=== PATIENT | female | born 2005 | race Caucasian/White ===

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

== ENCOUNTER 2025-01-09 09:16 | Outpatient (OUT) | payer OTHER, SELFPAY ==
[2025-01-09 09:44] LABS: Hematocrit 39.8 % (36.0-48.0); Hemoglobin 13.7 g/dL (12.0-16.0); Immature Granulocytes Abs Auto 0.01 10^3/uL (0.00-0.03); Immature Granulocytes Pct Auto 0.2 % (0.0-0.5); Lymphocytes Absolute Auto 1.6 10^3/uL (1.2-3.8); Mean Corpuscular HGB Conc 34.4 g/dL (29.9-35.2); Mean Corpuscular Hemoglobin 31.1 pg (26.7-34.0); Mean Corpuscular Volume 90.5 fL (81.0-99.0); Platelet Count 239 10^3/uL (150-450); Red Blood Count 4.40 10^6/uL (4.20-5.40); White Blood Count 5.8 10^3/uL (4.0-11.0)
[2025-01-09 10:29] LABS: Anion Gap 13.2; Blood Urea Nitrogen 8.0 mg/dL (6.4-19.3); Calcium 9.2 mg/dL (8.5-10.1); Carbon Dioxide 26.7 mmol/L (21.0-32.0); Chloride 104 mmol/L (98-107); Estimated GFR (African America >60 (>=60 mL/min/1.73m^2); Estimated GFR (Non-African Ame >60 (>=60 mL/min/1.73m^2); Glucose 86 mg/dL (74-106); Potassium 3.9 mmol/L (3.5-5.1); Sodium 140 mmol/L (136-145); Thyroid Stimulating Hormone 1.391 uIU/mL (0.516-4.130)
== END 2025-01-09 09:17 | disposition home or self-care (01) ==
PROVIDERS: PCP Family Medicine; Visit Provider Family Medicine
DX: R63.1 Polydipsia (principal); L65.9 Nonscarring hair loss, unspecified; R53.83 Other fatigue
CPT/HCPCS: 36415; 80048; 82728; 83036; 84439; 84443; 84480; 85025; 86376; 86800

== ENCOUNTER 2025-01-17 09:51 | Emergency (ER) | payer OTHER, SELFPAY ==
--- OUTSIDE RECORDS SUMMARY | 2025-01-09 05:04 | XMS_ITS | Continuity of Care Document ---
Author Organization [facility] Address [address] [place] [address] Phone Care Team Providers Care Administrative Program Specialist Name Role Phone Aylin Shin MD Primary Care Provider Aylin Shin MD Attending Provider Care Teams Patient Care Team Team Status: Active Member Role Status Dates Aylin Shin MD Primary Care Provider Active Visit Care Team Team Status: Inactive Member Role Status Dates Aylin Shin MD Primary Care Provider Active Start: November 03, 2024 End: November 03, 2024 Aylin Shin MD Attending Provider Active St art: November 03, 2024 End: November 03, 2024 Patient Care Team Team Status: Inactive Member Role Status Dates Aylin Shin MD Primary Care Provider Active Start: January 09, 2025 End: January 09, 2025 Aylin Shin MD Attending Provider Active St art: January 09, 2025 End: January 09, 2025 Chief Complaint and Reason for Visit Chief Complaint Admit Date Cough x1 week November 03, 2024 11:00 am Thyroid BW/Possible Diabetes/Support Ani mal January 09, 2025 8:25am Reason for Visit Admit Date Sinusitis, acute maxillary November 03 11:00am Fatigue January 09, 2025 8:25 am Hair loss January 09, 2025 8:25 am Polydipsia January 09, 2025 8:25 am Allergies, Adverse Reactions, Alerts Allergen Type Severity Reaction Last Updated Verified Status No Known Allergies Allergy Unknown January 09, 2025 8:31a m Yes Active Social History Smoking Status Status Start Date End Date Date of Observa tion Never smoked tobacco (finding) August 18, 2024 3:43pm Observation Status Observation Response Date of Response Legal Sex Female (finding) Sex Assigned At Female July 222005 Problems Active Problems Medical Problem Onset Date Status RLQ abdominal pain Unknown Active LLQ abdominal pain Unknown Active Sinusitis, acute maxillary Unknown Activ e Physically able to work Unknown Active Fatigue Unknown Active Polydipsia Unknown Active Vision problems Unknown Active Depression Unknown Active Diarrhea Unknown Active Migraine Unknown Active Hyperthyroidism Unknown Active Headache disorder Unknown Active Nausea and vomiting Unknown Active Abdominal pain Unknown Active Hair loss Unknown Active Medications Medication Status Dose Units Route Directions Qty Days St art Date Stop Date End Date Instructions Adherence Levonorgest rel-Ethinyl Estrad (Teddyo (28)) 0.15-0.03 mg tablet Discont inued 0 .ROUTE .COMPLEX 84 2023 11:01a m 2024 4:42p m TAKE 1 TABLET DAILY Rimegepant (Nurtec Odt) 75 mg tablet,disi ntegrating Discont inued 75 MG PO Every 48 hours as needed for migraine headache September 15, 2024 12:00a m November 03, 2024 11:14 am Benzonatate 200 mg capsule Discont inued 200 MG PO 2-3 TIMES PER DAY as needed for cough November 03, 2024 12:00a m January 09, 2025 8:31a m Amoxicillin -Pot Clavulanate 875-125 mg tablet Discont inued 1 TAB PO Twice daily November 03, 2024 12:00a m January 09, 2025 8:31a m Desogestrel -Ethinyl Estradiol (Rickyer) 0.15-0.03 mg tablet Active 1 TAB PO Daily January 09, 2025 12:00a m Complies with drug therapy Rizatriptan 10 mg tablet Active 10 MG PO EVERY 2-4 HOURS as needed January 09, 2025 12:00a m do not exceed 3 doses per 24 hrs Complies with drug therapy Levonorgest rel-Ethinyl Estrad (Teddyo (28)) 0.15-0.03 mg tablet Discont inued 1 TAB PO Daily 2023 1:00am 2023 11:01 am Duloxetine (Cymbalta) 20 mg capsule,del ayed release(DR/ EC) Discont inued 1 TAB PO Daily [facility] er 2023 1:00am [facility] 2023 10:53 am FreeTextSi tablet once a day; Note: Source Status: Taking; Provider: Aleida Viera ( ) Escitalopra m Oxalate 20 mg tablet Active 20 MG PO Daily [facility] 2023 1:00am FreeTextSi tablet Orally Once a day; Note: Source Status: Taking; Provider: Aleida Viera ( ) Complies with drug therapy Cetirizine (Zyrtec) 10 mg tablet Active 10 MG PO Daily as needed [facility] 2023 1:00am Complies with drug therapy Metformin 500 mg tablet Discont inued 500 MG PO Daily [facility] 2023 1:00am November 03, 2024 11:14 am Methimazole 5 mg tablet Active 5 MG PO Daily [facility] 2023 1:00am Complies with drug therapy Buspirone 10 mg tablet Discont inued 10 MG PO Twice daily [facility] 2023 1:00am November 03, 2024 11:15 am Buspirone 10 mg tablet Discont inued 15 MG PO Twice daily November 03, 2024 11:12a m January 09, 2025 8:33a m Buspirone 10 mg tablet Active 20 MG PO Twice daily January 09, 2025 8:31am Complies with drug therapy Sumatriptan Succinate 50 mg tablet Discont inued 50 MG PO EVERY 2-4 HOURS as needed for migraine headache [facility]24 [facility]03 pm do not exceed 4 doses per 24 hrs Levonorgest rel-Ethinyl Estrad (Lisa (28)) 0.15-0.03 mg tablet Discont inued 1 TAB PO Daily ry 2024 4:42pm November 03, 2024 11:12 am Vital Signs Vital Reading Result Reference Range Collection Date/Time Height 66 [in_i] November 03, 2024 11:08am Weight 104.32 kg November 03, 2024 11:08am Body Temperature 97.8 [degF] 97.6-99.0 November 03, 11:08am Heart Rate 120 /min 60-100 November 03, 2024 11:08am BP Systolic 122 mm[Hg] 100-140 November 03, 2024 11:08am BP Diastolic 84 mm[Hg] 60-100 November 03, 2024 11:08am BMI (Body Mass Index) 37.1 kg/m2 November 032024 11:08am Body mass index (BMI) [Percentile] Per age and sex 98.0 % Obesity; 95th percentile and above November 03, 2024 11:08am Height 66 [in_i] January 09, 2025 8:28am Weight 103.47 kg January 09, 2025 8:28am Heart Rate 92 /min 60-100 January 09, 2025 8:28am BP Systolic 106 mm[Hg] 100-140 January 09, 2025 8:28am BP Diastolic 75 mm[Hg] 60-100 January 09, 2025 8:28am BMI (Body Mass Index) 36.8 kg/m2 December 202024 8:28am Body mass index (BMI) [Percentile] Per age and sex 97.8 % Obesity; 95th percentile and above January 09, 2025 8:28am Advance Directives Advance Directive Response Recorded Date/ Time Advance Directives No July 3:41pm Insurance Providers Guarantor Marta Bustamante Address [address] [place] [id number] Contact Info. Home Phone: [phone] Payer Policy Id Subscriber's Name Subscriber Id Effectiv e Date Expiration Date [employer] [id number] Agus Bustamante Jr [id number] Encounters Encounter Location(s) Arrival/Admit Date Discharge/Depart Date Provider(s) Departed Physician/Prov ider Office Visit -[facility] November 03, 2024 11:00am November 03, 2024 11:34am Aylin Shin MD Departed Physician/Prov ider Office Visit -[facility] January 09, 2025 8:25am January 09, 2025 9:03am Aylin Shin MD Recent Diagnosis Onset Date Admit Date Sinusitis, acute maxillary Unknown October 192024 11:00am Fatigue Unknown January 09, 2025 8:25am Hair loss Unknown January 09, 2025 8:25am Polydipsia Unknown January 09, 2025 8:25am Assessments Diagnosis Onset Date Resolution Status Admit Date Sinusitis, acute maxillary acute November 03, 2024 11:00am Fatigue acute January 09 8:25am Hair loss acute January 09 8:25am Polydipsia acute January 09 8:25am Plan of Treatment Author Aylin Shin [facility] Authored November 07, 2024 12:57 pm Discussed diagnosis with charli frank. Instructed to take ATB as directed and complete entire course even if asymptomatic. OTC Tylenol or ibuprofen for discomfort. Saline nasal spray prn congestion. Flonase nasal spray prn congestion. OTC cough medication prn cough. Push fluids and rest. Cool mist humidifier. Immediate evaluation if worsening symptoms. Patient to notify office should symptoms persist or not improve. Pt verbalizes understanding and agrees with tx plan. Future Tests Future scheduled test information is unavailable Pending Tests Pending diagnostic test information is unavailable Future Visits Future appointment information is unavailable Referrals to Other Providers Referral information is unavailable Future Procedures Procedure Name Ordered Date Scheduled Date A1C with Estimated Average Glu January 09, 2025 8 :56am Basic Metabolic Panel January 09, 2025 8:59am Complete Blood Count Auto Diff January 09, 2025 8 :56am Ferritin January 09, 2025 8:56am Triiodothyronine (T3) Total January 09, 2025 8:56 am Free T4 (Free Thyroxine) January 09, 2025 8:56am Thyroid Antibodies TPO+Tg Ab January 09, 2025 8:5 7am Thyroid Stim Hormone w/Rflx January 09, 2025 8:56 am Future Medications Future medication information is unavailable Patient Instructions Patient instructions are unavailable
[2025-01-17 10:02] VITALS: BP 125/94; PULSE 97; TEMP 36.9; O2SAT 98; BMI 36.3
--- OUTSIDE RECORDS SUMMARY | 2025-01-17 10:36 | XMS_ITS | Clinical Summary ---
Author Organization [facility] Address [address] [place] [address] Care Team Providers Care Blanchard Grinder Operator Name Role Phone Aylin Shin Primary Care Provider [phone] Social History Tobacco Use Types Packs/Day Years Used Date Smoking Tobacco: Never Assessed Comments Unknown Sex and Gender Information Value Date Recorded Sex Assigned at Not on file Legal Sex Female 11:49 AM EDT Gender Identity Not on file Sexual Orientation Not on file Last Filed Vital Signs Vital Sign Reading Time Taken Comments Blood Pressure - - Pulse - - Temperature - - Respiratory Rate - - Oxygen Saturation - - Inhaled Oxygen Concentration - - Weight 84.4 kg (186 lb) 03/16/2023 9:26 AM EDT P CP Height 174 cm (5' 8.5 ) 03/16/2023 9:26 AM EDT P CP Body Mass Index 27.87 03/16/2023 9:26 AM EDT Body Mass Index Percentile 91.86% 03/16/2023 9:2 6 AM EDT Growth Chart: CDC (Girls, 2- 20 Years) Plan of Treatment Health Maintenance Due Date Last Done Comments MMR Vaccine (1 of 1 - Standa rd series) 2006 DTaP/Tdap/Td Vaccine (1 - Tdap) 2012 Varicella Vaccine (1 of 2 - 13+ 2-dose series) 2018 HPV Vaccine (1 - 3-dose series) 2020 Meningococcal B Vaccine (1 o f 2 - Standard) 2021 COVID-19 Vaccine (1 - 2023-2 5 season) 2024 Hepatitis B Vaccine (1 of 3 - 19+ 3-dose series) 2024 Influenza Vaccine (#1) 2025 HIB Vaccine Aged Out No longer eligi ble based on patient's age to complete this topic Hepatitis A Vaccine Aged Out No longe r eligible based on patient's age to complete this topic IPV Vaccine Aged Out No longer eligi ble based on patient's age to complete this topic Meningococcal ACWY Vaccine Aged Out N o longer eligible based on patient's age to complete this topic Pneumococcal Vaccine Aged Out No long er eligible based on patient's age to complete this topic RSV, Nirsevimab Immunization Aged Out No longer eligible based on patient's age to complete this topic Rotavirus Vaccine Aged Out No longer eligible based on patient's age to complete this topic Insurance [employer] Care Teams Blanchard Grinder Operator Relationship Specialty Start Date End Date Aylin Shin [address] [place] [address] PCP - General Family Medicine 03/03/23
--- OUTSIDE RECORDS SUMMARY | 2025-01-17 10:37 | XMS_ITS | Patient Health Record ---
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
--- OUTSIDE RECORDS SUMMARY | 2025-01-17 10:37 | XMS_ITS | Clinical Summary ---
Author Organization [facility] Address [address], [address] [place] [address] Care Team Providers Care Rn Stars Name Role Phone Aylin Shin MD Primary Care Provider [phone] Allergies No known active allergies Medications busPIRone (BUSPAR) 10 MG tablet Take 1 tablet by mouth 2 times daily 4 Active methIMAzole (TAPAZOLE) 5 MG tablet Take 1 tablet by mouth at bedtime 4 Active metFORMIN (GLUCOPHAGE-XR) 500 MG extended release tablet Take 1 tablet by mouth Daily with supper 4 Active desogestrel-eth inyl estradiol (JULEBER) 0.15-30 MG-MCG per tablet Take 1 tablet by mouth Daily with supper Active ferrous sulfate (IRON 325) 325 (65 Fe) MG tablet Take 1 tablet by mouth daily (with breakfast) Active escitalopram (LEXAPRO) 20 MG tablet Take 1 tablet by mouth Daily with supper 3 Active cetirizine (ZYRTEC) 10 MG tablet Take 1 tablet by mouth as needed for Allergies Active Active Problems Problem Noted Date Diagnosed Date Traction retinal detachment sparing macula, righ t 03/30/2024 Family History Medical History Relation Name Comments No Known Problems Father High Blood Pressure Mother Relation Name Status Comments Father Alive Mother Alive Social History Tobacco Use Types Packs/Day Years Used Date Smoking Tobacco: Never Smokeless Tobacco: Never Tobacco Cessation:Counseling Given: Not Answered Alcohol Use Standard Drinks/Week Comments Never 0 (1 standard drink = 0.6 oz pur e alcohol) Interpersonal Safety Domain Source: IP Abuse Scr eening Answer Date Recorded Physical abuse Denies 03/28/2024 Verbal abuse Denies 03/28/2024 Emotional abuse Denies 03/28/2024 Financial abuse Denies 03/28/2024 Sexual abuse Denies 03/28/2024 Comments No Sex and Gender Information Value Date Recorded Sex Assigned at Not on file Legal Sex Female 8:55 AM EDT Gender Identity Not on file Sexual Orientation Not on file Last Filed Vital Signs Vital Sign Reading Time Taken Comments Blood Pressure 128/78 03/30/2024 5:30 PM EDT Pulse 93 03/30/2024 5:30 PM EDT Temperature 36.2 C (97.2 F) 03/30/2024 5:30 PM EDT Respiratory Rate 24 03/30/2024 5:30 PM EDT Oxygen Saturation 97% 03/30/2024 5:30 PM EDT Inhaled Oxygen Concentration - - Weight 99.8 kg (220 lb) 03/30/2024 10:54 AM EDT Height 167.6 cm (5' 6 ) 03/30/2024 10:54 AM EDT Body Mass Index 35.51 03/30/2024 10:54 AM EDT Body Mass Index Percentile 97.40% 03/30/2024 10: 54 AM EDT Growth Chart: CDC (Girls, 2- 20 Years) Plan of Treatment Health Maintenance Due Date Last Done Comments COVID-19 Vaccine (1 - 2023-2 5 season) 2024 DTaP/Tdap/Td vaccine (1 - Tdap) 2024 Flu vaccine (#1) 01/19/2025 Polio vaccine Aged Out No longer elig ible based on patient's age to complete this topic Medical Devices Implanted Type Area Cnc Maintenance Technician Device Identifier Shelf Expiration Date Model / Serial / Lot Impl Eye Slv Scleral Bckl Antionette 70 2.1mm - [id number] Implanted:Qty: 1 on 03/30/2024 by Anirudh Mays MD at [facility] Eye Right: Eye [employer]-PMM 07/21/2028 [id number] / / [id number] Strip Scler [id number] Thk0.75mm Antionette Sld Styl [id number] - [id number] Implanted:Qty: 1 on 03/30/2024 by Anirudh Mays MD at [facility] Right: Eye [employer]-WD 07/21/2028 [id number] / / [id number] Insurance [address] [place] [address] [employer] Care Teams Rn Stars Relationship Specialty Start Date End Date Aylin Shin MD [address] [place] [address] PCP - General Family Medicine 03/30/24
--- OUTSIDE RECORDS SUMMARY | 2025-01-17 10:37 | XMS_ITS | Clinical Summary ---
Author Organization [facility] tem Address [id number] [address] [place] [address] Care Team Providers Care Melter Loader Name Role Phone Aylin Shin MD Primary Care Provider [phone] Allergies No known active allergies Medications * This document contains information received from the source organization and may not represent a complete record from that organization. JULEBER 0.15-0.03 mg per tablet Active methIMAzole (TAPAZOLE) 10 mg tablet 024 Active ferrous sulfate 325 (65 FE) MG tablet Take 1 tablet (325 mg total) by mouth nightly. Active escitalopram (LEXAPRO) 20 mg tablet Take 1 tablet by mouth daily 90 tablet 1 025 Active loratadine (CLARITIN) 10 mg tablet 1 tablet (10 mg total). 025 Active rizatriptan ELECTRONIC GAME DEVELOPER (MAXALT-ELECTRONIC GAME DEVELOPER) 10 mg disintegrating tabletIndications :Migraine without aura and without status migrainosus, not intractable Dissolve 1 tablet (10 mg total) on tongue once as needed for migraine for up to 2 doses. 9 tablet 2 025 Active UBRELVY 100 mg tabletIndications :Migraine without aura and without status migrainosus, not intractable Take 100 mg by mouth daily as needed (migraine) for up to 1 dose. Can take 2nd dose 2 hours later if needed. 16 tablet 12 025 Active Additional Information Patient not taking.Reported on 01/05/2025 busPIRone (BUSPAR) 15 mg tabletIndications :Depression, major, recurrent, mild,Generalized anxiety disorder Take 1 tablet by mouth in the morning and 1 tablet by mouth in the evening. During week of menstrual cycle, take an additional 5mg (1/3 tablet) by mouth in the morning and evening. 63 tablet 2 Active cyclobenzaprine (FLEXERIL) 10 mg tabletIndications :Tension headache,Cervical roslaind,Trapezius muscle spasm,Migraine without aura and without status migrainosus, not intractable Take 0.5-2 tablets (5-20 mg total) by mouth nightly. 60 tablet 2 025 2024 Discontinued Active Problems Problem Noted Date Diagnosed Date PCOS (polycystic ovarian syndrome) 10/25/2024 Anorexia nervosa, restricting type 10/25/2024 [place]' disease 10/25/2024 Amblyopia of right eye 10/25/2024 History of migraine 10/25/2024 Tension headache 10/25/2024 Cervicalgia 10/25/2024 Trapezius muscle spasm 10/25/2024 Retinal detachment with multiple breaks, bilater al 12/21/2023 Branch retinal vein occlusion with macular edema 12/21/2023 Oligomenorrhea 05/25/2023 Graves disease 05/25/2023 Educational circumstance 10/17/2020 Depression, major, recurrent, mild 10/01/2020 Generalized anxiety disorder 10/01/2020 Encounters * This document contains information received from the source organization and may not represent a complete record from that organization. Date Type Department Care Team Description 01/05/2025 Travel 12/15/2024 Travel 12/01/2024 Travel 11/06/2024 Travel 10/25/2024 9:30 AM EDT Office Visit [facility] Department of [address] [address] Mayra Allred, MAINTENANCE SUPERVISOR 2ND SHIFT-BENNETT Tension headache (Primary Dx); Depression, major, recurrent, mild; Generalized anxiety disorder; History of migraine; Branch retinal vein occlusion with macular edema, unspecified laterality ([facility]); Retinal detachment with multiple breaks, bilateral; Cervicalgia; Trapezius muscle spasm; Migraine without aura and without status migrainosus, not intractable; Low back pain at multiple sites 10/25/2024 Travel 10/20/2024 Travel from Last 3 Months Family History Medical History Relation Name Comments Epilepsy Brother bethany Migraines Brother cascade Seizures Brother bethany No Known Problems Father Diabetes Maternal Grandmother High Cholesterol Maternal Grandmother Hypertension Maternal Grandmother Hypertension Mother Migraines Mother Relation Name Status Comments Brother bethany Alive Father Alive Maternal Grandmother Mother Alive Social History Tobacco Use Types Packs/Day Years Used Date Smoking Tobacco: Never Smokeless Tobacco: Never Alcohol Use Standard Drinks/Week Comments Never 0 (1 standard drink = 0.6 oz pur e alcohol) PHQ-2 Answer Date Recorded Total Score 10 10/25/2024 Childcare Answer Date Recorded Childcare Unknown 07/01/2020 Employment Answer Date Recorded Employment Unknown 07/01/2020 Hunger Screening Answer Date Recorded Within the past 12 months we worried whether our food would run out before we got money to buy more. Never True 01/05/2025 Within the past 12 months th e food we bought just didn't last and we didn't have money to get more. Never True 01/05/2025 Purpose - Life Answer Date Recorded Purpose and direction in life Unknown Comments Unknown Sex and Gender Information Value Date Recorded Sex Assigned at Not on file Legal Sex Female 9:19 AM EST Gender Identity Not on file Sexual Orientation Not on file Last Filed Vital Signs Vital Sign Reading Time Taken Comments Blood Pressure 128/68 01/05/2025 10:16 AM EDT Pulse 89 01/05/2025 10:16 AM EDT Temperature - - Respiratory Rate - - Oxygen Saturation - - Inhaled Oxygen Concentration - - Weight 103.9 kg (229 lb) 01/05/2025 10:16 AM EDT Height 167.1 cm (5' 5.79 ) 10/25/2024 9:28 AM ED T Body Mass Index 37.2 10/25/2024 9:28 AM EDT Plan of Treatment Upcoming Encounters Date Type Department Care Team (Late st Contact Info) Description 02/08/2025 11:00 AM EDT Office Visit [facility] Department of [address] [address] Chalino Mayra, MAINTENANCE SUPERVISOR 2ND SHIFT-AVID EDITOR [address] [facility] [address] [place] [address] Health Maintenance Due Date Last Done Comments Adult BMI Follow Up Plan 2023 Influenza Vaccine 02/19/2025 05/01/2024 Depression Screening 10/25/2025 10/25/2024 Adult BMI Screening 01/05/2026 01/05/2025 Tobacco Screening 01/05/2026 01/05/2025 DTaP,Tdap and Td Vaccines (7 - Td or Tdap) 08/31/2027 08/30/2017, 09/05/2010, 11/01/2006, Additional history exists Medical Devices Not on file Insurance [facility] Care Teams Melter Loader Relationship Specialty Start Date End Date Aylin Shin MD [address] [place] [address] PCP - General Family Medicine 09/24/20
--- OUTSIDE RECORDS SUMMARY | 2025-01-17 10:37 | XMS_ITS | Encounter Summary ---
Author Organization [facility] tem Address [id number] [address] [place] [address] Care Team Providers Care Glue Mill Operator Name Role Phone Aylin Shin MD Primary Care Provider [phone] Encounter Details Date Type Department Care Team (Latest Contact Info) Description 01/05/2025 Travel Social History Tobacco Use Types Packs/Day Years [...] on file Sexual Orientation Not on file documented as of this encounter Plan of Treatment Upcoming Encounters Date Type Department Care Team (Late st Contact Info) Description 02/08/2025 11:00 AM EDT Office Visit [facility] Department [facility] [address] [id number] Mayra Allred APRN-BENNETT [address] [address] documented as of this encounter Visit Diagnoses Not on filedocumented in this encounter Additional Health Concerns Assessment Noted Time PHQ-9 Depression Total Score: 10 025 9:27 AM EDT documented as of this encounter Care Teams Glue Mill Operator Relationship Specialty Start Date End Date Aylin Shin MD [address] [place] [address] PCP - General Family Medicine 09/24/20 documented as of this encounter
--- OUTSIDE RECORDS SUMMARY | 2025-01-17 10:37 | XMS_ITS | Encounter Summary ---
Author Organization [facility] Address [address] [place] [address] Care Team Providers Care Chimney Builder Helper Name Role Phone Aylin Shin MD Primary Care Provider [phone] Encounter Details Date Type Department Care Team (Late st Contact Info) Description 01/11/2025 Orders Only [facility] [address] [place] [address] Milton Garay MD [address] [place] [address] Social History Tobacco Use Types Packs/Day Years Used Date Smoking Tobacco: Never Assessed Comments Unknown Sex and Gender Information Value Date Recorded Sex Assigned at Not on file Legal Sex Female 6:43 PM EDT Gender Identity Not on file Sexual Orientation Not on file documented as of this encounter Plan of Treatment Not on file documented as of this encounter Procedures Procedure Name Priority Date/Time Associated Diagnosis Comments T3, FREE Routine 01/11/2025 1:55 PM EDT TSH Routine 01/11/2025 1:55 PM EDT T4, FREE Routine 01/11/2025 1:55 PM EDT documented in this encounter Results * TSH (01/11/2025 1:55 PM EDT) Blood Venous blood specimen / Unknown us Milton Garay MD LAB BLOOD ORDERABLES Final Re sult * T3, free (01/11/2025 1:55 PM EDT) Blood Venous blood specimen / Unknown us Milton Garay MD LAB BLOOD ORDERABLES Final Re sult * T4, free (01/11/2025 1:55 PM EDT) Blood Venous blood specimen / Unknown us Milton Garay MD LAB BLOOD ORDERABLES Final Re sult documented in this encounter Visit Diagnoses Not on filedocumented in this encounter Care Teams Chimney Builder Helper Relationship Specialty Start Date End Date Aylin Shin MD [address] [place] [phone] PCP - General Family Medicine 09/23/23 documented as of this encounter
--- OUTSIDE RECORDS SUMMARY | 2025-01-17 10:37 | XMS_ITS | Clinical Summary ---
Author Organization [facility] Address [id number] [place] [address] Phone Care Team Providers Care Senior It Security Analyst Name Role Phone Milton Garay MD Unavailable [phone] Aylin Shin MD Primary Care Provider [phone] Allergies No known active allergies Medications escitalopram (Lexapro) 20 mg tablet 3 Active Juleber 0.15-0.03 mg tablet TAKE 1 TABLET BY MOUTH ONCE DAILY; skip sugar pills for 3 (THREE) months. Then take full pack including sugar pills with FOURTH pack. Active metFORMIN XR 500 mg 24 hr tablet TAKE 1 TABLET BY MOUTH ONCE DAILY IN THE EVENING WITH A MEAL; DO NOT CRUSH, CHEW, OR SPLIT Active busPIRone (Buspar) 10 mg tablet Take by mouth 3 times a day. Active methIMAzole (Tapazole) 5 mg tabletIndicatio ns:Graves disease 1 tab by mouth once a day 30 tablet 6 4 Active Active Problems Problem Noted Date Diagnosed Date Graves disease 05/25/2023 Autoimmune thyroiditis 05/25/2023 Oligomenorrhea 05/25/2023 Chest pain 05/25/2023 Encounters Date Type Department Care Team Description 01/10/2025 Orders Only [facility] [address] [place] [address] Provider, MD Yancy from Last 3 Months Family History Medical History Relation Name Comments Hypertension Mother Relation Name Status Comments Mother Social History Tobacco Use Types Packs/Day Years Used Date Smoking Tobacco: Never Tobacco Cessation:Counseling Given: Not Answered Comments Unknown Sex and Gender Information Value Date Recorded Sex Assigned at Not on file Legal Sex Female 12:31 PM EST Gender Identity Not on file Sexual Orientation Not on file Last Filed Vital Signs Vital Sign Reading Time Taken Comments Blood Pressure 121/82 03/27/2024 3:02 PM EDT Pulse 85 03/27/2024 3:02 PM EDT Temperature 36.7 C (98 F) 03/27/2024 3:02 PM EDT Respiratory Rate 18 06/07/2023 10:0 6 AM EST Oxygen Saturation 98% 06/25/2023 9:00 AM EST Inhaled Oxygen Concentration - - Weight 99.9 kg (220 lb 3.8 oz) 03/27/2024 3:02 P M EDT Height 168.1 cm (5' 6.18 ) 03/27/2024 3:02 PM ED T Body Mass Index 35.35 03/27/2024 3:02 PM EDT Body Mass Index Percentile 97.33% 03/27/2024 3:0 2 PM EDT Growth Chart: CDC (Girls, 2- 20 Years) Plan of Treatment Upcoming Encounters Date Type Department Care Team (Late st Contact Info) Description 03/19/2025 11:20 AM EDT Office Visit [facility] [address] [place] [phone] [place] [address] [place] [address] Health Maintenance Due Date Last Done Comments HIV Screening 2005 Lipid Panel 2005 Yearly Adult Physical 2005 Hearing Screening (#1) 2009 HPV Vaccines (1 - 3-dose series) 2020 Meningococcal B Vaccine (1 of 2 - Standard) 2021 Hepatitis C Screening 2023 COVID-19 Vaccine ( - season) 2024 Influenza Vaccine (#1) 2025 TSH Level 01/11/2026 01/11/2025, 11/19, 10/08/2023, Additional history exists DTaP/Tdap/Td Vaccines (7 - Td or Tdap) 08/31/2027 08/30/2017, 09/05/2010, 11/01/2006, Additional history exists Zoster Vaccines (1 of 2) 2055 09/05/2010, 07/22 Hepatitis B Vaccines Completed 03/12/2006, 2005, 2005, Additional history exists HIB Vaccines Completed 08/06/2006, 02/20, 2005, Additional history exists Pneumococcal Vaccine: Pediatrics and At-Risk Adult Patients Aged Out 11/01/2006, 03/12/2006, 2005, Additional history exists No longer eligible based on patient's age to complete this topic IPV Vaccines Completed 09/05/2010, 02/20, 2005, Additional history exists MMR Vaccines Completed 09/05/2010, 08/06/2006 Hepatitis A Vaccines Completed 03/03/2018, 08/31/19 Meningococcal Vaccine Completed 02/10/2023, 018 Rotavirus Vaccines Aged Out No longer eligible based on patient's age to complete this topic Procedures Procedure Name Priority Date/Time Associated Diagnosis Comments MISCELLANEOUS LAB TEST Routine 4:28 PM EDT TSH Routine 12/06/2023 10:01 AM EDT Graves disease from Last 3 Months or Most Recently Relevant to Health Maintenance Results * - Miscellaneous Test (01/10/2025 4:28 PM EDT) us Historical Provider MD LAB BLOOD ORDERABLES Soheila l Result * Thyroid Stimulating Hormone (12/06/2023 10:01 AM EDT) Thyroid Stimulating Hormone 0.52 0.44 - 3.98 mIU/L LAB IMMUNOASSAY METHOD 12/06/2023 8:03 PM EDT [facility] Blood Venous blood specimen / Unknown Venipuncture / Unknown 12/06/2023 10:01 AM EDT 12/06/2023 10:01 AM EDT Narrative [facility] - 12/06/2023 8:03 PM EDT TSH testing is performed using different testing methodology at [facility] than at other [facility]. Direct result comparisons should only be made within the same method. Nini Nunez MD LAB BLOOD ORDERABLES Final Result [facility] [id number] [facility] [id number] [place], [place] [id number] from Last 3 Months or Most Recently Relevant to Health Maintenance Insurance [place] [place] [address] NATIONAL ADVANTAGE PROGRAM [facility] NATIONAL ADVANTAGE PROGRAM [facility] NATIONAL ADVANTAGE PROGRAM [employer] NATIONAL [employer]VANTAGE PROGRAM Care Teams Senior It Security Analyst Relationship Specialty Start Date End Date Aylin Shin MD [address] [place] [address] [place] [address] PCP - General Family Medicine 05/25/23 Milton Garay MD [address] [facility], [address] [address] Referring Physician Endocrinology 05/25/23
--- OUTSIDE RECORDS SUMMARY | 2025-01-17 10:37 | XMS_ITS | Encounter Summary ---
Author Organization [facility] Address [address] [place] [address] Phone Care Team Providers Care Flower Grower Name Role Phone Milton Garay MD Unavailable [phone] Aylin Shin MD Primary Care Provider [phone] Encounter Details Date Type Department Care Team (Late st Contact Info) Description 01/10/2025 Orders Only [facility] [address] [place] [address] ProviderYancy MD [address] [place] [address] Social History Tobacco Use Types Packs/Day Years Used Date Smoking Tobacco: Never Comments Unknown Sex and Gender Information Value Date Recorded Sex Assigned at Not on file Legal Sex Female 12:31 PM EST Gender Identity Not on file Sexual Orientation Not on file documented as of this encounter Plan of Treatment Upcoming Encounters Date Type Department Care Team (Late st Contact Info) Description 03/19/2025 11:20 AM EDT Office Visit [facility] [address] [place] [phone] [place] [address] [place], [place] [id number] documented as of this encounter Procedures Procedure Name Priority Date/Time Associated Diagnosis Comments MISCELLANEOUS LAB TEST Routine 01/10/2025 4:28 PM EDT documented in this encounter Results * - Miscellaneous Test (01/10/2025 4:28 PM EDT) Historical Provider LAB BLOOD ORDERABLES Soheila l Result documented in this encounter Visit Diagnoses Not on filedocumented in this encounter Care Teams Flower Grower Relationship Specialty Start Date End Date Aylin Shin MD [address] [place] [address] [place] [address] PCP - General Family Medicine 05/25/23 Milton Garay MD [address] [facility], [address] [address] Referring Physician Endocrinology 05/25/23 documented as of this encounter
--- OUTSIDE RECORDS SUMMARY | 2025-01-17 10:37 | XMS_ITS | Encounter Summary ---
Author Organization [facility] Address [address] [place] [address] Care Team Providers Care Die Press Operator Name Role Phone Aylin Shin MD Primary Care Provider [phone] Encounter Details Date Type Department Care Team (Late st Contact Info) Description 10/11/2023 Clinisync Result Encounter [facility] External Department Unsolicited Inge Lopez, DO [address] [place] [id number] Social History Tobacco Use Types Packs/Day Years [...] Procedure Name Priority Date/Time Associated Diagnosis Comments US PELVIS W/ TRANSVAGINAL 10/11/2023 9:30 AM EDT documented in this encounter Results * US PELVIS W/ TRANSVAGINAL (10/11/2023 9:30 AM EDT) Anatomical Region Laterality Modality Other 10/11/2023 9:30 AM EDT Narrative 10/11/2023 9:32 AM EDT The [address] [address] Ultrasound Report Signed Patient: JACK BUSTAMANTE MR#: [id number] : 2005 Acct:[id number] Age/Sex: 18 / F ADM Date: 10/11/23 Loc: [facility] Attending Dr: Inge Lopez D.O. Ordering Physician: Inge Lopez D.O. Date of Service: 10/11/23 Procedure(s): US pelvis w/ transvaginal Accession Number(s): [id number] cc: Aylin Shin M.D.; Inge Lopez D.O. The [place] [id number] Patient Name: JACK BUSTAMANTE MRN: [id number] date: 2005 Sex: F Assigned Patient Location: [facility] Current Patient Location: [facility] Accession/Order Number: [id number] Exam Date: 10/11/2023 08:00 Report Date: 10/11/2023 09:30 At the request of: INGE LOPEZ Procedure: US pelvis w/ transvaginal EXAMINATION: US pelvis w/ transvaginal HISTORY: PCOS COMPARISON: No relevant comparison available. FINDINGS: Transabdominal images The uterus is normal in size, contour and echotexture measuring 7.3 x 2.2 x 4.2 cm, anteverted, anteflexed. No focal myometrial mass The endometrium measures 4 mm, normal. The right ovary measures 3.9 x 1.4 x 2.5 cm. Normal color Doppler flow The left ovary is normal measuring 2.8 x 1.0 x 2.0 cm. Normal color Doppler flow No free fluid US/US pelvis w/ transvaginal IMPRESSION: Normal transabdominal exam Electronically authenticated by: UMA CISNEROS Date: 10/11/2023 09:30 Dictated By: Uma Cisneros M.D. Signed By: 10/11/23931 DD/ 9 TD/TT: Welding Process Specialist: Procedure Note Radiology, Radiologist, MD - 10/11/2023 [place] [address] Ultrasound Report Signed Patient: JACK BUSTAMANTE LMR#: [id number] : 2005cct:[id number] Age/Sex: 18 / FADM Date: 10/11/23 Loc: [facility] Attending Dr: Inge Lopez D.O. Ordering Physician: Inge Lopez D.O. Date of Service: 10/11/23 Procedure(s): US pelvis w/ transvaginal Accession Number(s): [id number] cc: Aylin Shin M.D.; Inge Lopez D.O. [address] [address] Patient Name: JACK BUSTAMANTE MRN: [id number] date: 2005 Sex: F Assigned Patient Location: [facility] Current Patient Location: [facility] Accession/Order Number: [id number] Exam Date: 10/11/2023 08:00 Report Date: 10/11/2023 09:30 At the request of: INGE LOPEZ Procedure: US pelvis w/ transvaginal EXAMINATION: US pelvis w/ transvaginal HISTORY: PCOS COMPARISON: No relevant comparison available. FINDINGS: Transabdominal images The uterus is normal in size, contour and echotexture measuring 7.3 x 2.2x 4.2 cm, anteverted, anteflexed. No focal myometrial mass The endometrium measures 4 mm, normal. The right ovary measures 3.9 x 1.4 x 2.5 cm. Normal color Doppler flow The left ovary is normal measuring 2.8 x 1.0 x 2.0 cm. Normal colorDoppler flow No free fluid US/US pelvis w/ transvaginal IMPRESSION: Normal transabdominal exam Electronically authenticated by: UMA CISNEROS Date: 10/11/2023 09:30 Dictated By: Uma Cisneros M.D. Signed By:10/11/23931 DD/ 9 TD/TT: Welding Process Specialist: us Inge Lopez DO [facility] Final Result documented in this encounter Visit Diagnoses Not on filedocumented in this encounter Care Teams Die Press Operator Relationship Specialty Start Date End Date Aylin Shin MD [address] [place] [address] PCP - General Family Medicine 09/23/23 documented as of this encounter
--- OUTSIDE RECORDS SUMMARY | 2025-01-17 10:37 | XMS_ITS | Clinical Summary ---
Author Organization [facility] Address [address] [place] [address] Care Team Providers Care Certified Court/Medical Interpreter Name Role Phone Aylin Shin MD Primary Care Provider [phone] Allergies No known active allergies Medications escitalopram (Lexapro) 20 MG tablet 3 Active methIMAzole (Tapazole) 5 MG tablet 1 tab by mouth once a day 4 Active ferrous sulfate 325 (65 Fe) MG tablet Take 325 mg by mouth in the morning. Take with meals. 28mg. Active Juleber 0.15-30 MG-MCG tabletIndications: Encounter for initial prescription of contraceptives, unspecified contraceptive TAKE 1 TABLET BY MOUTH ONCE DAILY; skip sugar pills for 3 (THREE) months. Then take full pack including sugar pills with FOURTH pack. 84 tablet 3 5 Active metFORMIN XR (Glucophage-XR) 500 MG 24 hr tabletIndications: PCOS (polycystic ovarian syndrome) TAKE 1 TABLET BY MOUTH ONCE DAILY IN THE EVENING WITH A MEAL; DO NOT CRUSH, CHEW, OR SPLIT 30 tablet 3 5 Active busPIRone (Buspar) 15 MG tablet Take 15 mg by mouth in the morning and 15 mg before bedtime. 5 Active Encounters Date Type Department Care Team Description 01/11/2025 Orders Only [facility] [address] [place] [id number] Milton Garay MD from Last 3 Months Family History Medical History Relation Name Comments Diabetes Maternal Grandmother Hypertension Mother Colon cancer Other Stomach cancer Other Relation Name Status Comments Father Alive Maternal Grandmother Mother Alive Other Social History Tobacco Use Types Packs/Day Years Used Date Smoking Tobacco: Never Assessed Comments Unknown Sex and Gender Information Value Date Recorded Sex Assigned at Not on file Legal Sex Female 6:43 PM EDT Gender Identity Not on file Sexual Orientation Not on file Last Filed Vital Signs Vital Sign Reading Time Taken Comments Blood Pressure 128/78 10/16/2024 9:41 AM EDT Pulse 79 04/08/2023 12:30 PM EDT Temperature - - Respiratory Rate 16 04/08/2023 12:30 PM EDT Oxygen Saturation 100% 04/08/2023 12:30 PM EDT Inhaled Oxygen Concentration - - Weight 103 kg (227 lb 1.9 oz) 10/16/2024 9:41 AM EDT Height 167.6 cm (5' 6 ) 10/16/2024 9:41 AM EDT Body Mass Index 36.66 10/16/2024 9:41 AM EDT Plan of Treatment Not on file Procedures Procedure Name Priority Date/Time Associated Diagnosis Comments TSH Routine 01/11/2025 1:55 PM EDT T3, FREE Routine 01/11/2025 1:55 PM EDT T4, FREE Routine 01/11/2025 1:55 PM EDT from Last 3 Months Results * T3, free (01/11/2025 1:55 PM EDT) Blood Venous blood specimen / Unknown Milton Garay MD LAB BLOOD ORDERABLES Final Re sult * TSH (01/11/2025 1:55 PM EDT) Blood Venous blood specimen / Unknown Milton Garay MD LAB BLOOD ORDERABLES Final Re sult * T4, free (01/11/2025 1:55 PM EDT) Blood Venous blood specimen / Unknown Milton Garay MD LAB BLOOD ORDERABLES Final Re sult from Last 3 Months Insurance [employer] Care Teams Certified Court/Medical Interpreter Relationship Specialty Start Date End Date Aylin Shin MD [address] [facility] [place] [id number] PCP - General Family Medicine 09/23/23
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
[2025-01-17 11:58] VITALS: BP 135/86; PULSE 78; O2SAT 97
== END 2025-01-17 11:58 | disposition home or self-care (01) ==
PROVIDERS: Emergency Provider Emergency Medicine; PCP Family Medicine
DX: M54.2 Cervicalgia (principal); V49.40XA Driver injured in collision with unspecified motor vehicles in traffic accident, initial encounter; M94.0 Chondrocostal junction syndrome [Tietze]
CPT/HCPCS: 99282